=== PATIENT | female | born 1930 | race Caucasian/White ===

== ENCOUNTER → 2017-07-05 | Outpatient (CLI) | payer OTHER ==
[~2017-07-05] VITALS: Ht 157.5 cm; Wt 45.0 kg
[~2017-07-05] MED LIST: ATORVASTATIN CA10 MG PO; BAYER CHEWABLE81 MG PO; CALTRATE 600 +1 EAC1 PO; FISH OIL300 MG PO; MULTIPLE VITAM1 EAC4 PO; TIMOPTIC-0100 DROP/5 BOTH EYES; TRAVATAN Z5 ML BOTH EYES
[2017-07-05 10:37] VITALS: BP 136/62
== END | disposition home or self-care (01) ==
LOC: IVINF 05-27 15:00
DX: M81.0 Age-related osteoporosis without current pathological fracture (principal)
CPT/HCPCS: 96365; J3489